=== PATIENT | male | born 1960 | race Caucasian/White ===

== ENCOUNTER 2018-06-29 12:15 | Inpatient (IN) ==
--- NOTE | 2018-06-29 12:50 | Diag Imaging Result Doc PS360 ---
EXAM: CHEST-2 VIEWS HISTORY: cough TECHNIQUE: Chest two views COMPARISON: 11/26/2015 FINDINGS: The lungs are well expanded. The heart is not enlarged. The vessels are not distended. There are no infiltrates. No pleural effusions. There are multiple old left rib fractures. There has been surgery to the right clavicle. IMPRESSION: No pneumonia. Electronically signed by Dale Diehl 06/29/2018 12:47 PM
--- NOTE | 2018-06-29 16:33 | PROVIDER DOCUMENTATION ---
This chart was entered by Madhav Parra Scribe, acting as scribe for Zoë Tracey CRNP. HPI-General Adult - General Chief Complaint: General Adult Stated Complaint: DR DOMINGUEZ Time Seen by Provider: 06/29/18 16:03 Source: patient, family Allergies/Adverse Reactions: Patient Allergies Allergy/AdvReac Type Severity Reaction Status Date / Time cephalexin [From Keflex] Allergy HIVES Verified 06/29/18 12:28 hydrochlorothiazide Allergy Unknown Verified 06/29/18 12:28 Home Medications: Home Medication List Medication Instructions Recorded Confirmed Last Taken Type ATORVAstatin [Lipitor] 1 tab PO QHS 06/29/18 06/29/18 Unknown History Baclofen 1 tab PO TID 06/29/18 06/29/18 Unknown History Carbamazepine 1 tab PO BID 06/29/18 06/29/18 Unknown History Clopidogrel [Plavix] 1 tab PO QAM 06/29/18 06/29/18 Unknown History Diazepam 5 mg PO DIRECTED 06/29/18 06/29/18 Unknown History Irbesartan 1 tab PO QAM 06/29/18 06/29/18 Unknown History Paroxetine HCl 2 tab PO QHS 06/29/18 06/29/18 Unknown History Prazosin HCl 1 cap PO QHS 06/29/18 06/29/18 Unknown History Risperidone 1 tab PO QHS 06/29/18 06/29/18 Unknown History Tamsulosin [Flomax] 1 cap PO QHS 06/29/18 06/29/18 Unknown History - History of Present Illness -Gen Adult Nature of Presenting Problems: 57 yom presents with cc of cough since wednesday worsening with fever of 102.7 last night. states that pt has a hx of "massive" cva in 2014. Patient poor historian post CVA. Reports went to pcp this am and was told to come to ED for possible pneumonia. Reports pcp gave pt rocephin shot and steroid shot and that his bp was 74/50. States that pt is lethargic and not acting like himself. Reports patient has had a runny nose as well and 1 episode of diarrhea last night. Also reports sick contacts at home with flu and strep past few weeks. Denies n,v,c,slurred speech. Patient is lethargic and able to be aroused, however he will fall asleep shortly after being aroused. Review of Systems - Adult - REVIEW OF SYSTEMS - ADULT ROS:: ROS per family (Patient poor historian d/t hx of CVA) Constitutional: reports: fever, fatique, other (lethargy). denies: chills, night sweats, weight gain, weight loss Eyes: reports: no symptoms reported Ears, Nose, Mouth & Throat: reports: sinus problem (runny nose), throat pain. denies: ear discharge, ear pain Cardiovascular: denies: chest pain, irregular heart rate, orthopnea, syncope Respiratory: reports: cough. denies: dyspnea on exertion, pleurisy, shortness of breath, wheezing Gastrointestinal: reports: diarrhea (last night). denies: abdominal pain, nausea, poor appetite, vomiting Genitourinary: denies: dysuria, discharge, frequency, flank pain, hematuria, hesitency, incontinence, urinary retention, urgency Musculoskeletal: reports: other (body aches). denies: bone pain, back pain, frequent leg cramps, joint pain, joint swelling, muscle aches, muscle weakness Integumentary: reports: no symptoms reported Neurological: denies: ataxia, dizziness/vertigo, headache/migraines, loss of balance, numbness, paresthesia, seizure, slurred speech, syncope, tremors Psychiatric: reports: no symptoms reported Endocrine: reports: no symptoms reported All Other Systems: Reviewed and Negative Past History - Adult - PAST MEDICAL HISTORY-ADULT Review of Records: reports: Nursing Assessment Review, Medications Reviewed Major Childhood Illnesses: reports: denies history Cardiovascular: reports: denies history Respiratory: reports: denies history Gastrointestinal: reports: denies history Obstetrical/Gynecological: reports: denies history Genitourinary: reports: denies history Musculoskeletal: reports: denies history Neurological: reports: CVA, stroke deficits Endocrine/Immune: reports: denies history Other Conditions: reports: denies history - IMMUNIZATION STATUS Childhood Immunizations: See Nurse Assessment Flu Vaccine: See Nurse Assessment - FAMILY HISTORY Family History: reviewed, not pertinent - SOCIAL HISTORY Smoking: denies Substance Use: none/never Physical Exam-General - PHYSICAL EXAM-ADULT Initial Vital Signs Reviewed: Yes - CONSTITUTIONAL General Appearance: alert, mild distress, lethargic (Able to be aroused). negative: appears well - EYES Eyes: pink conjunctivae. negative: PERRL/EOMI (L pupil 3, R pupil 2. Both reactive.) - HEAD, EARS, NOSE, MOUTH & THROAT HENMT: normocephalic/atraumatic, moist mucous membranes - NECK Neck: non-tender, full range of motion, supple, normal inspection - RESPIRATORY Respiratory: chest non-tender, lungs clear, normal breath sounds, no pleuratic chest pain, no respiratory distress, no accessory muscle use. negative: crackles, rales, rhonchi, stridor, wheezing, decreased rate, increased rate - CARDIOVASCULAR Cardiovascular: regular rate, rhythm, no edema, no gallop, no murmur - GASTROINTESTINAL (ABDOMEN) Abdominal Exam: non tender, soft, no organomegaly, no pulsatile mass - SKIN Integumentary: normal turgor, warm/dry, pallor - NEUROLOGIC Neurologic: motor weakness (Weakness on R side d/t previous CVA) - PSYCHIATRIC Psych/Mental Status: normal thought content, normal thought process, oriented x 3, other (fatigued) Progress - PLAN OF CARE/RESULTS Progress/Plan/Lab Results: Vital Signs - 8 hr 06/29/18 12:21 06/29/18 13:49 Temperature 97.6 F Pulse Rate 94 H 98 H Respiratory Rate 18 22 Blood Pressure 98/65 100/55 O2 Sat by Pulse Oximetry 95 94 L Orders Category Date Time Status CHEST-2 VIEWS [RAD] Stat Exams 06/29/18 12:31 Completed CXR read as normal. Per Dr. Martin, possible early L lower lob pneumonia. Patient lethargic upon examination and mental status change from baseline per patient's /caregiver. Result Diagrams: 06/29/18 16:30 06/29/18 16:30 - EKG 1 Time of EKG reading by physician:: 19:15 EKG Read and Signed by:: Elizabeth Martin EKG Interpretation (*Must complete 3 of following elements*): Abnormal Rate: 74 Rhythm: SR w/ premature supraventricular complexes [place]: normal QRS: RBB MS Interval: normal ST Wave: normal - XRAY 1 XRAY: Bilateral XRAY Study: Chest Impression: See EMR Report ([facility] [address], [address], [place] [id number] Department of Imaging Patient: ELSY LEON RAD Date: 06/29/18#: [id number] : 1960DM Status: PRE ERAcct#: [id number] Age/Sex: 57/MRoom/Bed: Loc: ED Ordering Physician: Edgardo Parra MD Family Physician: Micheline Alas MD Reason for Procedure: cough Signed EXAM: CHEST-2 VIEWS HISTORY: cough TECHNIQUE: Chest two views COMPARISON: 11/26/2015 FINDINGS: The lungs are well expanded. The heart is not enlarged. The vessels are not distended. There are no infiltrates. No pleural effusions. There are multiple old left rib fractures. There has been surgery to the right clavicle. IMPRESSION: No pneumonia. Electronically signed by Dale Diehl 06/29/2018 12:47 PM 06/29/[id number] Interpreting Physician: Dale Diehl MD Dictated Date/Time: 06/29/181246 cc: Edgardo Parra MD; Micheline Alas MD) - CT/MRI 1 CT Study: Head Impression: See EMR Report ([facility] [address] [facility], [address], [place] [address] Department of Imaging Patient: ELSY LEON Date: 06/29/18MR#: [id number] : 1960DM Status: REG ERAcct#: [id number] Age/Sex: 57/MRoom/Bed: Loc: ED Ordering Physician: Zoë Tracey Family Physician: Micheline Alas MD Reason for Procedure: AMS Signed EXAM: CT HEAD W/O CONTRAST INDICATION: AMS TECHNIQUE: This exam was performed using automated exposure control, adjustment of mA or kV according to patient size, and/or use of iterative reconstruction technique. COMPARISON: None. FINDINGS: There is extensive left occipitotemporal encephalomalacia. There is a chronic lacunar infarct involving the gregorio on the left. There is no definite acute infarct given the limited sensitivity of CT versus MRI. There is no discrete intracranial mass, mass effect, or intracranial hemorrhage. There is minimal right maxillary sinus mucosal thickening. Surrounding soft tissues and bony structures are essentially unremarkable, otherwise. IMPRESSION: Left occipitotemporal encephalomalacia and a chronic lacunar infarct involving the gregorio on the left. No definite acute intracranial pathology by CT. Electronically signed by Von Altamirano 06/29/2018 9:23 PM 06/29/182122 Interpreting Physician: Von Altamirano MD Dictated Date/Time: 06/29/182120 cc: Zoë Tracey; Micheline Alas MD) - CONSULTS/PCP/HOSPITALIST Notification #1 *Consult/PCP/Hospitalist*: MD Jamil Time Discussed: 22:54 Reason/Comments: Lethargy Consult Disposition: Admit Departure - Departure Date of Disposition Decision: 06/29/18 Time of Disposition Decision: 22:54 DIAGNOSIS: Lethargy, Cough Leukocytosis Qualifiers: Leukocytosis type: unspecified Qualified Code(s): D72.829 - Elevated white blood cell count, unspecified Disposition: ADMITTED INPATIENT 09 Certified Medical Emergency: Emergent Condition: Stable Referrals and Follow-Ups: Micheline Alas MD [Primary Care Provider] - - Critical Care Note This patient required my direct & personal management of CC.: No Attestation - Physician/ ANDERSON Attestation Patient care was provided by Advanced Practice Provider:: Yes Advanced Practice Provider:: Zoë Tracey Advanced Practice Provider documentation review:: The Mid-level provider documentation, treatment plan and medical decision making was reviewed by the physician who agrees with all treatment and medical decision making by the P. The physician spent face to face time with patient:: No Advanced Practice Provider documentation review:: Supervising physician onsite and consulted in the evaluation and care of this patient. The physician did not have a face to face encounter with the patient. This chart was documented by the indicated scribe, (Madhav Parra Scribe) and accurately reflects the services I performed and decisions made by me, Zoë Tracey CRNP, as attested by the provider's signature.
[2018-06-29 16:47] LABS: BASO# 0.03 X1000 (0.0-0.2); BASO% 0.2 % (0.0-0.8); EOS# 0.01 X1000 (0.0-0.7); EOS% 0.1 % (0.0-10.0); HEMATOCRIT 41.7 % (42.0-52.0); HEMOGLOBIN 14.1 g/dL (14.0-18.0); IMM GRAN# 0.03 X1000 (0.0-0.04); IMM GRAN% 0.2 % (0.0-0.5); LYMPH# 1.04 X1000 (1.2-3.4); LYMPH% 7.3 % (20.5-51.1); MCH 30.3 PG (27-31); MCHC 33.8 g/dL (33-37); MCV 89.5 FL (81-99); MONO# 1.03 X1000 (0.11-0.59); MONO% 7.2 % (1.7-9.3); NEUT# 12.11 X1000 (1.4-6.5); PLT 196 X1000 (130-400); RBC 4.66 XMIL (4.7-6.1); RDW 13.3 % (11.5-14.5); WBC 14.25 X1000 (4.8-10.8)
[2018-06-29 17:07] LABS: ALB/GLOB RATIO 1.1; ALBUMIN 3.8 g/dL (3.5-5.0); CALCIUM 8.4 mg/dL (8.8-10.2); CREATININE 1.3 mg/dL (0.7-1.2); POTASSIUM 3.8 mmol/L (3.5-5.1); TOTAL BILIRUBIN 0.58 mg/dL (0.20-1.00); TOTAL PROTEIN 7.3 g/dL (6.3-8.3)
[2018-06-29] MEDS ORDERED: NS 1,000 ML IV ONE (19:47)
[2018-06-29 20:18] LABS: URINE SOURCE CLEAN CATCH
[2018-06-29 20:23] LABS: BILIRUBIN URINE NEGATIVE (NEGATIVE); BLOOD URINE NEGATIVE (NEGATIVE); COLOR YELLOW; GLUCOSE URINE NEGATIVE (NEGATIVE); KETONE URINE NEGATIVE (NEGATIVE); LEUKOCYTES URINE NEGATIVE (NEGATIVE); NITRITE URINE NEGATIVE (NEGATIVE); PH URINE 6.5; PROTEIN URINE TRACE mg/dL (NEGATIVE); TURBIDITY URINE CLEAR (CLEAR); UROBILINOGEN URINE 4 mg/dL (NORMAL)
[2018-06-29 20:25] LABS: UR EPITHELIAL CELLS <10 /HPF (<10); URINE BACTERIA NEGATIVE /HPF; URINE RBC <10 /HPF (<10); URINE WBC <10 /HPF (<10)
--- NOTE | 2018-06-29 21:26 | Diag Imaging Result Doc PS360 ---
EXAM: CT HEAD W/O CONTRAST INDICATION: AMS TECHNIQUE: This exam was performed using automated exposure control, adjustment of mA or kV according to patient size, and/or use of iterative reconstruction technique. COMPARISON: None. FINDINGS: There is extensive left occipitotemporal encephalomalacia. There is a chronic lacunar infarct involving the gregorio on the left. There is no definite acute infarct given the limited sensitivity of CT versus MRI. There is no discrete intracranial mass, mass effect, or intracranial hemorrhage. There is minimal right maxillary sinus mucosal thickening. Surrounding soft tissues and bony structures are essentially unremarkable, otherwise. IMPRESSION: Left occipitotemporal encephalomalacia and a chronic lacunar infarct involving the gregorio on the left. No definite acute intracranial pathology by CT. Electronically signed by Von Altamirano 06/29/2018 9:23 PM
[2018-06-29] MEDS ORDERED: LEVAQUIN 500 MG/D5W 500 MG/100 ML IVPB IV ONE (22:43)
--- NOTE | 2018-06-30 00:13 | HISTORY AND PHYSICAL ---
ADDENDUM: Patient was admitted to our facility on account of being more lethargic in addition to having fever and cough. Saw Dr. Alas today and was given, I believe, Rocephin and steroids, sent home. When he got home he continued to deteriorate further and based on his prior history of urinary tract infection with sepsis, the called Dr. Alas who referred him to the ER. Workup has revealed early right-sided infiltrate based on my exam also. Patient's white count is 14,000 with a left shift. The rest of exam BUN 13, creatinine 1.3. His urine, however, was clear. CT showed a prior old left occipital temporal infarct involving the gregorio on the left. My exam is notable for crepitation in the right side. The patient is very lethargic. 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 He is arousable. He is oriented to person only. My plan will be to continue with Levaquin which was prescribed in the ER and breathing treatments, hydrate patient. Avoid any potential neurotoxic medications. Also consider the possibility of toxicity from his other medications. Will send off a Tegretol level which will be followed in morning. The patient does not have any focal exam noted other than the dense hemiplegia which is old. Follow labs in the morning. cc: Caro Hernández MD
[2018-06-30 00:37] LABS: ALLEN TEST YES; BE 0.1 mmoll (-3.0-3.0); BLOOD TYPE ARTERIAL; METHB 0.4 % (0.0-1.5); O2(CT) 15.8 mL/dL (15.0-23.0); O2HB 95.1 % (95.0-99.0); PCO2(98.6) 39 mmHg (35-45); PO2(98.6) 73 mmHg (60-100); SAMPLE BLOOD; SAO2 98.4 % (95.0-100.0); THB 11.8 g/dL (11.5-17.4); pH(98.6) 7.41 (7.35-7.45)
[2018-06-30 00:38] LABS: MODALITY ROOM AIR
[2018-06-30] MEDS ORDERED: LOVENOX SUBQ SCH (01:06)
[2018-06-30] MEDS ORDERED: TYLENOL PO PRN (01:06)
[2018-06-30] MEDS ORDERED: ZOFRAN IV PRN (01:06)
[2018-06-30] MEDS ORDERED: VALIUM PO PRN (01:06)
[2018-06-30] MEDS: DUONEB (A & A) INH SCH ×2 (03:00→09:10)
[2018-06-30 06:05] LABS: BASO# 0.01 X1000 (0.0-0.2); BASO% 0.1 % (0.0-0.8); EOS# 0.01 X1000 (0.0-0.7); EOS% 0.1 % (0.0-10.0); HEMATOCRIT 36.2 % (42.0-52.0); IMM GRAN# 0.03 X1000 (0.0-0.04); IMM GRAN% 0.3 % (0.0-0.5); LYMPH# 1.44 X1000 (1.2-3.4); LYMPH% 13.3 % (20.5-51.1); MCH 29.9 PG (27-31); MCHC 33.1 g/dL (33-37); MCV 90.3 FL (81-99); MONO# 1.06 X1000 (0.11-0.59); MONO% 9.8 % (1.7-9.3); MPV 9.4 FL (7.4-10.4); NEUT% 76.4 % (42.2-75.2); PLT 184 X1000 (130-400); RBC 4.01 XMIL (4.7-6.1); RDW 13.2 % (11.5-14.5); WBC 10.85 X1000 (4.8-10.8)
[2018-06-30 06:38] LABS: AGAP 9; BUN 11 mg/dL (8-22); CHLORIDE 106 mmol/L (98-107); COSMO 274; CREATININE 0.8 mg/dL (0.7-1.2); ESTIMATED GFR > 60; GLUCOSE 112 mg/dL (70-104); MAGNESIUM 2.2 mg/dL (1.5-2.7); POTASSIUM 3.9 mmol/L (3.5-5.1); SODIUM 137 mmol/L (136-145); TCO2 22 mmol/L (25-35)
--- NOTE | 2018-06-30 07:13 | EKG Report ---
Test Performed on : 06/29/2018 6:39:37 PM Test Reason : Weakness Blood Pressure : / mmHG Vent. Rate : 074 BPM Atrial Rate : 074 BPM P-R Int : 120 ms QRS Dur : 144 ms QT Int : 428 ms P-R-T Axes : 000 033 013 degrees QTc Int : 475 ms Sinus rhythm. with premature supraventricular complexes. Right bundle branch block Abnormal ECG No previous ECGs available Unconfirmed Result
[2018-06-30] MEDS ORDERED: PLAVIX PO SCH (09:00)
[2018-06-30] MEDS ORDERED: AVAPRO PO SCH (09:00)
[2018-06-30] MEDS ORDERED: TEGRETOL PO SCH (09:00)
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
[2018-06-30 14:58] VITALS: BP 125/66
--- NOTE | 2018-06-30 15:22 | DISCHARGE SUMMARY ---
ADMISSION DATE: 06/29/2018 DISCHARGE DATE: 06/30/2018 DISPOSITION: Home. FOLLOWUP: Dr. Alas. CONSULTATION DURING ADMISSION: None. IMAGING STUDIES OF SIGNIFICANCE: 1. Chest x-ray was negative for any pneumonia. 2. A CT scan of the head showed a left occipitotemporal encephalomalacia and chronic lacunar infarct involving the gregorio on the left. No definite acute pathology. ADMISSION DIAGNOSES: 1. Possible pneumonia. 2. Encephalopathy. 3. Hypertension. DIAGNOSES AT TIME OF DISCHARGE: 1. Altered mental status secondary to global encephalopathy. Etiology seems to be a combination of medication side effects and infection. 2. Bronchitis improved. 3. History of CVA with right-sided hemiparesis. 4. History of bipolar and schizophrenia. 5. Dyslipidemia. DISCHARGE MEDICATIONS: 1. Lipitor 40 mg at bedtime. 2. Baclofen 10 mg 3 times per day. 3. Carbamazepine 200 b.i.d. 4. Clopidogrel 75 daily. 5. Valium 5 mg as directed. 6. Paroxetine 20 mg at bedtime. 7. Tamsulosin 0.4 at bedtime. 8. Risperdal 1 mg p.o. at bedtime. 9. 2 mg p.o. at bedtime. 10. Levaquin 500 mg daily. PRESENTING COMPLAINT: Fever and altered mental status. HISTORY OF PRESENTING COMPLAINT: Mr. Thapa is a 57-year-old gentleman who presented to the emergency department because of altered mental status. According to the , Mr. Thapa had a fever so he was taken to his primary care doctor (Dr. Alas) who gave him a shot of Rocephin and steroids. They were going to send him home, but then because of his clinical picture, he was advised to come to the emergency department where he was evaluated upon presentation and admitted. HOSPITAL COURSE: Mr. Thapa spent his short hospital stay in the ER. He was adequately fluid resuscitated. Cultures were done and IV antibiotics were given. The following day, Mr. Thapa is completely back to his normal self. cc: MD LORENA Arrington
[2018-06-30] MEDS ORDERED: VALIUM PO SCH (21:00)
[2018-06-30] MEDS ORDERED: LEVAQUIN PO SCH (21:00)
[2018-06-30] MEDS ORDERED: MINIPRESS PO SCH (21:00)
[2018-06-30] MEDS ORDERED: PAXIL PO SCH (21:00)
[2018-06-30] MEDS ORDERED: FLOMAX PO SCH (21:00)
[2018-06-30] MEDS ORDERED: LIPITOR PO SCH (21:00)
--- NOTE | 2018-07-01 03:46 | DISCHARGE SUMMARY ---
ADMISSION DATE: 06/29/2018 DISCHARGE DATE: 06/30/2018 DISPOSITION: Home. FOLLOW-UP: Will be with Dr. Alas. CONSULTATION DURING THIS ADMISSION: None. IMAGING STUDIES OF SIGNIFICANCE: 1. A chest x-ray was negative for pneumonia. 2. A CT scan of the head shows an old left occipital temporal encephalomalacia, but no acute intracranial pathology. ADMISSION DIAGNOSES: 1. Possible pneumonia. 2. Encephalopathy. 3. Cerebrovascular accident. DIAGNOSIS AT TIME OF DISCHARGE: 1. Altered mental status on presentation, with global encephalopathy secondary to a combination of drug side effects and infectious etiology. 2. Bronchitis. Chest x-ray shows no evidence of pneumonia. 3. History of cerebrovascular accident with right-sided hemiparesis. 4. History of bipolar and schizophrenia. 5. Hypertension, controlled. 6. Dyslipidemia. 7. Benign prostatic hypertrophy, on medications. 8. Chronic therapy on multiple psychotropic medications. DISCHARGE MEDICATIONS: 1. Atorvastatin 40 mg daily at bedtime. 2. Baclofen 10 mg p.o. 3 times per day. 3. Carbamazepine 200 b.i.d. 4. Plavix 75 daily. 5. Diazepam 5 mg as directed. 6. 150 every morning. 7. Paroxetine 40 mg at bedtime. 8. Tamsulosin 0.4 at bedtime. 9. Risperidone at bedtime. 10. Prazosin. 11. Levaquin 500 p.o. daily. PRESENTING COMPLAINT: Fever and altered mental status. HISTORY OF PRESENTING COMPLAINT: Mr. Thapa is a 57-year-old male with a history of CVA with right-sided hemiparesis who needs a lot of care at home and the is his healthcare provider. The patient seems to have been in his usual state of health until the day prior, the saw that he was getting more confused and he had a temperature of 102.7 degrees. He was taken to his primary care doctor, Dr. Alas, who reviewed him and give him a shot of Rocephin and steroid. Was going to send him home, but because of his status she decided to send him directly to the emergency room. In the emergency room, the patient was evaluated and hospitalists were consulted for admission. HOSPITAL COURSE: Mr. Thapa was admitted to the hospital but spent a lot of time in the ER. He was adequately hydrated and was given IV antibiotics. His cultures so far, strep throat was negative, and his blood cultures have not grown anything since yesterday. He is feeling a lot better this morning, he is more alert. The was at the bedside and she also agrees that Mr. Thapa is back to his baseline. His creatinine, which was 1.3, has normalized with adequate hydration. His chest sounds a lot better, and he has been afebrile. Per the nursing staff, Mr. Thapa has been able to tolerate his breakfast and he has also eating his lunch. His chest x- ray was unremarkable for any obvious consolidation. I think he probably has bronchitis, which seems to be improving. Mr. Thapa is much better today, so he is going to be discharged on oral antibiotics, and he has been advised to follow up with his primary care doctor. Specifically, we did stress about all his psychotropic medications, which I think in combination of the fever, made him more altered. I did advise him to lower the doses and follow up with his primary care doctor for her to make any changes that needs to be done since he seems to be on a lot of psychotropic medications. All the discharge instructions were discussed with the patient and the , who was at the bedside. Both of them voiced understanding. Time spent for discharge is 36 minutes. cc: Erick You MD MTDD
== END 2018-06-30 14:59 | disposition home or self-care (01) | DRG 92 ==
LOC: ED 12:15 → EDIPHOLD 23:31 → SUATTDRO 23:31 → 3N 06-30 14:28
PROVIDERS: ATTEND Internal Medicine
CPT/HCPCS: 70450; 71020; 71046; 80048; 80053; 80156; 81001; 82805; 82948; 83605; 83735; 84484; 85025; 87040; 87081; 87275; 87276; 87430; 87804; 93005; 94640; 94761; 94799; 96361; 96365; 96375; 99285; A9270; J1650; J1956; J7030; XXXXX